=== PATIENT | male | born 1970 | race Caucasian/White ===

== ENCOUNTER 2018-03-10 07:35 | Emergency (ER) | payer BC, SELFPAY ==
[2018-03-10] MEDS ORDERED: Lidocaine 1% (PF) 30 ML VIAL ONE (08:03)
== END 2018-03-10 08:45 | disposition home or self-care (01) ==
LOC: ERS 07:35
DX: S01.412A Laceration without foreign body of left cheek and temporomandibular area, initial encounter (principal); S01.112A Laceration without foreign body of left eyelid and periocular area, initial encounter; F17.210 Nicotine dependence, cigarettes, uncomplicated; W22.8XXA Striking against or struck by other objects, initial encounter
CPT/HCPCS: 12013; J2001

== ENCOUNTER 2018-03-19 19:53 | Emergency (ER) | payer BC | END 2018-03-19 20:20 | disposition home or self-care (01) | LOC: ERS 19:53 | DX: S01.81XD Laceration without foreign body of other part of head, subsequent encounter (principal); S05.32XD Ocular laceration without prolapse or loss of intraocular tissue, left eye, subsequent encounter; F17.210 Nicotine dependence, cigarettes, uncomplicated ==

== ENCOUNTER 2020-06-07 07:04 | Emergency (ER) | payer BC ==
[2020-06-07] MEDS ORDERED: Boostrix 0.5 ML (Tdap) VIAL ONE ×2 (07:38→07:40)
== END 2020-06-07 08:14 | disposition home or self-care (01) ==
LOC: ERS 07:04
DX: M25.561 Pain in right knee (principal); F17.210 Nicotine dependence, cigarettes, uncomplicated
CPT/HCPCS: 90471; 90715

== ENCOUNTER 2020-11-09 11:12 | Outpatient (CLI) | payer BC ==
[~2020-11-09 11:12] MED LIST: Iopamidol-370 76% 500 ML 1 ML ONE
== END 2020-11-09 11:13 | disposition home or self-care (01) ==
LOC: BICCT 11:12
PROVIDERS: ATTEND Student in an Organized Health Care Education/Training Program
DX: J38.3 Other diseases of vocal cords (principal)
CPT/HCPCS: 70491; Q9967

== ENCOUNTER 2020-12-16 16:47 | Outpatient (CLI) | payer BC ==
[2020-12-17 00:54] LABS: SARS-CoV-2 PCR by NAA Not Detected (NotDetected)
== END 2020-12-16 16:48 | disposition home or self-care (01) ==
LOC: LABBT 16:47
PROVIDERS: ATTEND Student in an Organized Health Care Education/Training Program
DX: Z01.818 Encounter for other preprocedural examination (principal); J38.3 Other diseases of vocal cords; K21.9 Gastro-esophageal reflux disease without esophagitis; Z72.0 Tobacco use; R49.0 Dysphonia; Z20.822 Contact with and (suspected) exposure to COVID-19
CPT/HCPCS: 93005; 93010; U0003; U0005

== ENCOUNTER 2020-12-20 05:56 | Day surgery (SDC) | payer BC ==
[2020-12-19 12:23] VITALS: BMI 21.7
[2020-12-20] MEDS ORDERED: Midazolam HCl 2 mg/2 ml Vial ONE ×2 (06:36→07:36)
[2020-12-20] MEDS ORDERED: Fentanyl 100 MCG/2 ML VIAL ONE (06:36)
[2020-12-20] MEDS ORDERED: EPINEPHrine 1 MG/ML AMP ONE (06:47)
[2020-12-20] MEDS ORDERED: Propofol 500 MG/50 ML VIAL ONE (06:52)
[2020-12-20] MEDS ORDERED: Albuterol Sulfate 2.5 mg/3 ml Neb ONE (06:59)
[2020-12-20] MEDS ORDERED: SUGAMMADEX SODIUM 200 MG/2 ML VIAL ONE (07:40)
[2020-12-20] MEDS ORDERED: Ondansetron PF 4 MG/2 ML Vial ONE (08:26)
[2020-12-20] MEDS ORDERED: PHENYLEPHRINE-NS 100 MCG/ML 10 ML SYRINGE ONE (08:26)
[2020-12-20] MEDS ORDERED: Dexamethasone 20 MG/5 ML VIAL ONE (08:26)
[2020-12-20] MEDS ORDERED: PROPOFOL 200 MG/20 ML VIAL ONE (08:26)
[2020-12-20] MEDS ORDERED: Lidocaine 1% PF 5 ML VIAL ONE (08:26)
[2020-12-20] MEDS ORDERED: Rocuronium Bromide 10 MG/ML (10ML VIAL) ONE (08:26)
== END 2020-12-20 10:58 | disposition home or self-care (01) ==
LOC: SDC 05:56
PROVIDERS: ATTEND Student in an Organized Health Care Education/Training Program
PROC: 0CBV8ZZ Excision of Left Vocal Cord, Via Natural or Artificial Opening Endoscopic (ICD-10-PCS; principal; 2020-12-20)
PROC: 0CBT8ZZ Excision of Right Vocal Cord, Via Natural or Artificial Opening Endoscopic (ICD-10-PCS; principal; 2020-12-20)
DX: J38.3 Other diseases of vocal cords (principal); K21.9 Gastro-esophageal reflux disease without esophagitis; F17.210 Nicotine dependence, cigarettes, uncomplicated; J34.2 Deviated nasal septum; F10.20 Alcohol dependence, uncomplicated; Z79.899 Other long term (current) drug therapy
CPT/HCPCS: 88305; J0171; J1100; J2250; J2405; J2704; J3010; J7611